=== PATIENT | male | born 1970 | race Caucasian/White ===

== ENCOUNTER 2024-06-15 16:44 | Emergency (ER) | payer BC ==
[~2024-06-15] VITALS: Ht 175.3 cm; Wt 97.5 kg
[~2024-06-15 16:44] MED LIST: RXTRAM50 PO
[2024-06-15 16:59] VITALS: BP 138/88
[2024-06-15] MEDS ORDERED: Ondansetron 4 MG SoluTab SL ONE (19:20)
[2024-06-15] MEDS ORDERED: Ketorolac Tromethamine 15mg Vial IM ONE (19:20)
[2024-06-15] MEDS ORDERED: OxyCODONE HCL 5 MG TAB PO ONE (19:20)
[2024-06-15] MEDS ORDERED: Lidocaine 4% 1 Patch TOP ONE (19:20)
[2024-06-15] MEDS ORDERED: ASPERFLEX1 EACH TOP (19:23)
[2024-06-15] MEDS ORDERED: Robaxin750 MG PO (19:23)
== END 2024-06-15 19:47 | disposition home or self-care (01) ==
LOC: ER 16:44
DX: M54.50 Low back pain, unspecified (principal); Z79.899 Other long term (current) drug therapy
CPT/HCPCS: 96372; 99283-25; A9270; J1885